=== PATIENT | male | born 1935 | race Caucasian/White ===

== ENCOUNTER 2018-02-26 07:57 | Emergency (ER) | payer MEDICARE, OTHER ==
[2018-02-26] MEDS ORDERED: Ketorolac Tromethamine 30 MG/ML VIAL ONE (08:18)
--- NOTE | 2018-02-26 09:10 | RAD ---
THREE VIEWS LUMBAR SPINE: INDICATION: Left hip pain and left leg pain. FINDINGS: There are 5 lumbar-type vertebrae. There is grade I anterolisthesis at L4 and L5. There is multilev el mild degenerative disk disease. There is moderate facet osteoarthrosis at L4-5 and L5-S1. There are vascular calcifications involving the abdominal aorta. No acute osseous abnormality is evident. IMPRESSION: Mild spondylosis of the lumbar spine. Grade I anterolisthesis at L4 on L5. No acute fracture or sub luxation demonstrated. POS: [facility]
== END 2018-02-26 08:40 | disposition home or self-care (01) ==
LOC: SCSER 07:57
DX: M54.32 Sciatica, left side (principal); E78.00 Pure hypercholesterolemia, unspecified; Z79.899 Other long term (current) drug therapy
CPT/HCPCS: 72100; 96372; J1885

== ENCOUNTER 2018-03-12 09:54 | Outpatient (CLI) | payer MEDICARE, OTHER ==
--- NOTE | 2018-03-12 13:04 | MRI ---
MRI LUMBAR SPINE NONCONTRAST: DATE: 03/12/18. HISTORY: An 82-year-old male with: M43.10, anterolisthesis. 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 M47.26, osteoarthritis of spine with radiculopathy, lumbar region. COMPARISON: None. FINDINGS: There are 5 lumbar-type vertebrae. Vertebral body heights are maintained. There is diffusely hetero geneous bone marrow signal in a nodular, patchy manner. This consists of innumerable small and tiny T1 hypointense focal signal abnormalities in the bone marrow, interspersed with T1 hyperintensities ( normal fatty marrow). There is no bone marrow edema seen on the STIR sagittal sequence. There is a large number of bilateral parapelvic renal cysts. There are also bilateral renal parenchy mal T2- hyperintense masses of varying sizes, including large, incompletely imaged. These are statis tically most likely to be cysts also, but occasionally, solid renal masses can be T2-hyperintense. There are 5 lumbar-type vertebrae. Vertebral body heights are maintained. T11-12: Mild disk space narrowing. Degenerative retrolisthesis of T11 on T12. Central and left par acentral shallow disk-osteophyte complex encroaches upon the left anterior aspect of the spinal canal . Mild central spinal canal stenosis. Moderate bilateral neural foraminal stenosis. T12-L1: Essentially normal. Conus medullaris terminates at L1. L1-2: Disk space maintained. Minimal degenerative retrolisthesis. Minimal disk bulge. Mild degene rative facet hypertrophy, left greater than right. Moderate neural foraminal stenosis. Mild central stenosis. L2-3: Disk space maintained. Diffuse disk bulge. Moderate to severe right neural foraminal stenosi s. Severe left neural foraminal stenosis. Mild to moderate thickening of ligamentum flavum. Mild d egenerative facet hypertrophy. Moderate to severe central spinal canal stenosis. L3-4: Moderate-sized central and bilateral paracentral disk extrusion with superior migration of ext ruded disc material up to the pedicle level of L3. This disk extrusion occupies 30-40% of the cross- sectional area of the spinal canal, causing moderate central spinal canal stenosis, abutting and perh aps mildly displacing the bilateral L4 nerve roots. Moderate to severe bilateral neural foraminal st enosis. Mild to moderate bilateral degenerative facet changes. Mild disk space narrowing. L4-5: Severe bilateral degenerative facet disease causes grade I anterolisthesis of L4 on L5. Minim al disk space narrowing. Diffuse disk bulge. Moderate right neural foraminal stenosis. Severe left neural foraminal stenosis. Moderate central spinal canal stenosis. Significant lateral recess sten osis bilaterally. L5-S1: Spinal canal and thecal sac are generous in caliber. Normal disk. Mild bilateral neural for aminal stenosis. Mild bilateral degenerative facet changes. IMPRESSION: 1. Severe bilateral facet osteoarthrosis at L4-5 causing grade I spondylolisthesis. 2. Moderate-sized central extruded disk herniation with superior migration at L3-4. 3. High-grade neural foraminal stenosis, lateral recess stenosis, and central spinal canal stenosis at levels described above. 4. Diffusely heterogeneous bone marrow signal. This is nonspecific. Possibilities include senescen t marrow changes, diffuse skeletal metastatic disease, and multiple myeloma. Clinical and historical correlation is recommended. 5. Multiple bilateral renal cysts. KEVEN [place] POS: [facility]
== END 2018-03-12 09:55 | disposition home or self-care (01) ==
LOC: TBSIIMAG 09:54
PROVIDERS: ATTEND Family Medicine
DX: M47.26 Other spondylosis with radiculopathy, lumbar region (principal); M46.96 Unspecified inflammatory spondylopathy, lumbar region; M43.16 Spondylolisthesis, lumbar region; M51.16 Intervertebral disc disorders with radiculopathy, lumbar region; M48.061 Spinal stenosis, lumbar region without neurogenic claudication; M99.83 Other biomechanical lesions of lumbar region; N28.1 Cyst of kidney, acquired
CPT/HCPCS: 72148

== ENCOUNTER 2018-09-09 09:12 | Outpatient (CLI) | payer MEDICARE, OTHER ==
--- NOTE | 2018-09-09 09:34 | RAD ---
TWO VIEWS SKULL: History: Osteoma. noticed quarter-sized lump to the right of midline. Date: 09-09-18 Technique: AP and lateral views obtained. FINDINGS: No definite visible evidence of calvarial lesions seen. Plain film radiographs failed to visualize an y definite visualized osteoma; however, if there is concern for osteoma, correlation with CT may bett er characterize this. IMPRESSION: No definite visible plain radiographic evidence of osseous lesions. Correlation with CT may be of use . POS: [facility]
== END 2018-09-09 09:13 | disposition home or self-care (01) ==
LOC: BICRAD 09:12
PROVIDERS: ATTEND Dermatology
DX: D16.9 Benign neoplasm of bone and articular cartilage, unspecified (principal); R22.0 Localized swelling, mass and lump, head
CPT/HCPCS: 70250

== ENCOUNTER 2018-10-27 07:12 | Outpatient (CLI) | payer MEDICARE, OTHER ==
--- NOTE | 2018-10-27 08:06 | ULT ---
ABDOMINAL AORTIC ULTRASOUND: HISTORY: Screening for abdominal aortic aneurysm. TECHNIQUE: Real-time imaging of the abdominal aorta is performed. FINDINGS: The proximal aorta measures 2.2 cm. The mid portion measures 1.5 and distally 1.3 cm. The right and left common iliac arteries are in the 11 mm range. IMPRESSION: No evidence of abdominal aortic aneurysm. POS: [facility]
== END 2018-10-27 07:13 | disposition home or self-care (01) ==
LOC: BICULT 07:12
PROVIDERS: ATTEND Family Medicine
DX: Z00.00 Encounter for general adult medical examination without abnormal findings (principal); Z13.6 Encounter for screening for cardiovascular disorders
CPT/HCPCS: 76775

== ENCOUNTER 2022-04-18 09:40 | Outpatient (CLI) | payer MEDICARE, OTHER | END 2022-04-18 09:41 | disposition home or self-care (01) | LOC: PET 09:40 | PROVIDERS: ATTEND Psychiatry & Neurology Neurology | DX: F03.90 Unspecified dementia, unspecified severity, without behavioral disturbance, psychotic disturbance, mood disturbance, and anxiety (principal); G31.09 Other frontotemporal neurocognitive disorder; R41.3 Other amnesia | CPT/HCPCS: 70551; 78803; A9552 ==

== ENCOUNTER 2025-07-11 23:58 | Inpatient (IN) | payer MEDICARE ==
[2025-07-12] MEDS ORDERED: Dextrose 50% Abboject 50 ML SYRINGE SLOW IVP PRN (00:19)
[2025-07-12] MEDS ORDERED: Acetaminophen 325 MG TAB PO PRN (00:19)
[2025-07-12] MEDS ORDERED: Ondansetron PF 4 MG/2 ML Vial IVP PRN (00:19)
[2025-07-12] MEDS ORDERED: hydrALAZINE 20 MG/ML VIAL SLOW IVP PRN (00:19)
[2025-07-12] MEDS ORDERED: Glucagon 1 MG/ML KIT IM PRN (00:19)
[2025-07-12] MEDS: hydrALAZINE 20 MG/ML VIAL SLOW IVP PRN (02:57)
[2025-07-12 03:29] LABS: #Basophils 0.04 10x3/uL (0.0-0.2); #Eosinophils 0.30 10x3/uL (0.0-0.7); #Monocytes 0.82 10x3/uL (0.11-0.59); #Neutrophils 4.00 10x3/uL (1.40-6.50); %Basophils 0.6 % (0.0-1.0); %Eosinophils 4.6 % (0.0-10.0); %Lymphocytes 20.7 % (21.0-51.0); %Monocytes 12.6 % (0.0-10.0); %Neutrophils 61.3 % (42.0-75.0); Hematocrit 33.7 % (42.0-52.0); Hemoglobin 11.1 g/dL (14.0-18.0); Mean Corpuscular Hemoglobin 30.5 pg (27.0-31.0); Mean Corpuscular Volume 92.6 fL (78.0-98.0); Platelet Count 182 10x3/uL (130-400); Red Blood Cell (RBC) Count 3.64 mill/uL (4.70-6.10); White Blood Cell (WBC) Count 6.52 10x3/uL (4.8-10.8)
[2025-07-12 03:47] LABS: ALT (SGPT) 19 U/L (Less than 45); AST (SGOT) 28 U/L (11-34); Albumin 3.8 g/dL (3.1-4.5); Alkaline Phosphatase 59 U/L (40-110); Anion Gap 14 mmol/L (10-20); BUN (Urea Nitrogen) 33 mg/dL (8.4-25.7); Bilirubin, Total 0.4 mg/dL (0.3-1.2); Calc. Creatinine Clearance 48 mL/min (70-130); Calcium 9.2 mg/dL (7.8-10.44); Carbon Dioxide 23 mmol/L (23-31); Chloride 112 mmol/L (98-107); Globulin 2.8 g/dL (2.4-3.5); Glucose 91 mg/dL (83-110); Potassium 3.6 mmol/L (3.5-5.1); Sodium 145 mmol/L (136-145)
[2025-07-12] MEDS: niCARdipine 25 MG in Sodium Chloride 0.9% 250 ML 250 ML IVPB SCH (03:52)
[2025-07-12] MEDS ORDERED: Thrombin 5000 UNITS/5 ML VIAL ONE (07:32)
[2025-07-12] MEDS ORDERED: Lidocaine 1% (PF) 30 ML VIAL ONE (07:36)
[2025-07-12] MEDS: Famotidine/PF 20 mg/2ml Vial SLOW IVP SCH (07:48)
[2025-07-12] MEDS: Mupirocin 1 GM TUBE NASAL DECOLONIZATION NASAL SCH (10:37)
[2025-07-12] MEDS ORDERED: Nitroglycerin 50 MG/250 ML BOT 0 ML ONE (15:56)
[2025-07-12] MEDS ORDERED: Mannitol 12.5 GM/50 ML ONE (15:56)
[2025-07-12] MEDS ORDERED: fentaNYL PF 100 MCG/2 ML SYRINGE ONE (16:07)
[2025-07-12] MEDS ORDERED: Ondansetron PF 4 MG/2 ML Vial ONE ×2 (16:09→17:12)
[2025-07-12] MEDS ORDERED: SUCCINYLCHOLINE/SOD CL,ISO/PF 200 MG/10 ML SYRINGE FS ONE (16:09)
[2025-07-12] MEDS ORDERED: PROPOFOL 200 MG/20 ML VIAL ONE (16:31)
[2025-07-12] MEDS ORDERED: CEFAZOLIN 1 GM VIAL ONE (16:52)
[2025-07-12] MEDS ORDERED: PHENYLEPHRINE-NS 100 MCG/ML 10 ML SYRINGE ONE ×2 (16:52→17:11)
[2025-07-12] MEDS ORDERED: SUGAMMADEX SODIUM 200 MG/2 ML VIAL ONE (17:19)
[2025-07-13 05:15] LABS: #Basophils Less than 0.03 10x3/uL (0.0-0.2); #Eosinophils Less than 0.03 10x3/uL (0.0-0.7); #Monocytes 0.99 10x3/uL (0.11-0.59); #Neutrophils 13.28 10x3/uL (1.40-6.50); %Basophils 0.1 % (0.0-1.0); %Eosinophils 0.0 % (0.0-10.0); %Lymphocytes 3.1 % (21.0-51.0); %Monocytes 6.7 % (0.0-10.0); %Neutrophils 89.5 % (42.0-75.0); Hematocrit 32.3 % (42.0-52.0); Hemoglobin 10.5 g/dL (14.0-18.0); Mean Corpuscular Hemoglobin 29.8 pg (27.0-31.0); Mean Corpuscular Volume 91.8 fL (78.0-98.0); Platelet Count 183 10x3/uL (130-400); Red Blood Cell (RBC) Count 3.52 mill/uL (4.70-6.10); White Blood Cell (WBC) Count 14.84 10x3/uL (4.8-10.8)
[2025-07-13 05:30] LABS: ALT (SGPT) 16 U/L (Less than 45); AST (SGOT) 33 U/L (11-34); Albumin 3.5 g/dL (3.1-4.5); Alkaline Phosphatase 58 U/L (40-110); Anion Gap 15 mmol/L (10-20); BUN (Urea Nitrogen) 24 mg/dL (8.4-25.7); Bilirubin, Total 0.4 mg/dL (0.3-1.2); Calc. Creatinine Clearance 44 mL/min (70-130); Calcium 8.8 mg/dL (7.8-10.44); Carbon Dioxide 19 mmol/L (23-31); Chloride 115 mmol/L (98-107); Globulin 2.6 g/dL (2.4-3.5); Glucose 128 mg/dL (83-110); Potassium 4.2 mmol/L (3.5-5.1); Sodium 145 mmol/L (136-145)
[2025-07-13] MEDS: diphenhydrAMINE 50 MG/ML VIAL IVP PRN (21:52)
[2025-07-14] MEDS ORDERED: OLANZapine 10 MG VIAL IM SCH (03:45)
[2025-07-14 05:24] LABS: ALT (SGPT) 16 U/L (Less than 45); AST (SGOT) 66 U/L (11-34); Albumin 3.2 g/dL (3.1-4.5); Alkaline Phosphatase 54 U/L (40-110); Anion Gap 12 mmol/L (10-20); BUN (Urea Nitrogen) 30 mg/dL (8.4-25.7); Bilirubin, Total 0.5 mg/dL (0.3-1.2); Calc. Creatinine Clearance 47 mL/min (70-130); Calcium 8.4 mg/dL (7.8-10.44); Carbon Dioxide 18 mmol/L (23-31); Chloride 118 mmol/L (98-107); Globulin 2.5 g/dL (2.4-3.5); Glucose 121 mg/dL (83-110); Potassium 3.8 mmol/L (3.5-5.1); Sodium 144 mmol/L (136-145)
[2025-07-14 05:46] LABS: #Basophils 0.03 10x3/uL (0.0-0.2); #Eosinophils Less than 0.03 10x3/uL (0.0-0.7); #Monocytes 1.12 10x3/uL (0.11-0.59); #Neutrophils 12.72 10x3/uL (1.40-6.50); %Basophils 0.2 % (0.0-1.0); %Eosinophils 0.0 % (0.0-10.0); %Lymphocytes 4.5 % (21.0-51.0); %Monocytes 7.7 % (0.0-10.0); %Neutrophils 87.2 % (42.0-75.0); Hematocrit 33.2 % (42.0-52.0); Hemoglobin 10.6 g/dL (14.0-18.0); Mean Corpuscular Hemoglobin 29.7 pg (27.0-31.0); Mean Corpuscular Volume 93.0 fL (78.0-98.0); Platelet Count 159 10x3/uL (130-400); Red Blood Cell (RBC) Count 3.57 mill/uL (4.70-6.10); White Blood Cell (WBC) Count 14.58 10x3/uL (4.8-10.8)
[2025-07-14] MEDS: QUEtiapine 25 MG TAB PO SCH (17:53)
[2025-07-15] MEDS: hydrALAZINE 20 MG/ML VIAL SLOW IVP SCH (03:26)
[2025-07-15] MEDS ORDERED: niCARdipine 25 MG in Sodium Chloride 0.9% 250 ML 250 ML IVPB SCH (04:45)
[2025-07-15] MEDS: niCARdipine 25 MG in Sodium Chloride 0.9% 250 ML 250 ML IVPB PRN (04:50)
[2025-07-15 07:12] LABS: #Basophils Less than 0.03 10x3/uL (0.0-0.2); #Eosinophils Less than 0.03 10x3/uL (0.0-0.7); #Monocytes 0.99 10x3/uL (0.11-0.59); #Neutrophils 10.98 10x3/uL (1.40-6.50); %Basophils 0.2 % (0.0-1.0); %Eosinophils 0.0 % (0.0-10.0); %Lymphocytes 3.3 % (21.0-51.0); %Monocytes 7.9 % (0.0-10.0); %Neutrophils 88.0 % (42.0-75.0); Hematocrit 33.9 % (42.0-52.0); Hemoglobin 11.1 g/dL (14.0-18.0); Mean Corpuscular Hemoglobin 30.4 pg (27.0-31.0); Mean Corpuscular Volume 92.9 fL (78.0-98.0); Platelet Count 142 10x3/uL (130-400); Red Blood Cell (RBC) Count 3.65 mill/uL (4.70-6.10); White Blood Cell (WBC) Count 12.47 10x3/uL (4.8-10.8)
[2025-07-15 07:36] LABS: ALT (SGPT) 14 U/L (Less than 45); AST (SGOT) 54 U/L (11-34); Albumin 3.2 g/dL (3.1-4.5); Alkaline Phosphatase 58 U/L (40-110); Anion Gap 15 mmol/L (10-20); BUN (Urea Nitrogen) 34 mg/dL (8.4-25.7); Bilirubin, Total 0.7 mg/dL (0.3-1.2); Calc. Creatinine Clearance 54 mL/min (70-130); Calcium 8.7 mg/dL (7.8-10.44); Carbon Dioxide 16 mmol/L (23-31); Chloride 119 mmol/L (98-107); Globulin 2.7 g/dL (2.4-3.5); Glucose 123 mg/dL (83-110); Potassium 3.4 mmol/L (3.5-5.1); Sodium 147 mmol/L (136-145)
[2025-07-15] MEDS: FLU (Fluad Triv) 25-26 (65UP)PF 45 MCG/0.5 ML Syringe IM ONE (19:21)
[2025-07-15] MEDS: PNEUMOC 20-VAL CONJ-DIP CRM/PF 0.5 ML SYRINGE IM ONE (19:24)
[2025-07-15] MEDS: hydrALAZINE 20 MG/ML VIAL SLOW IVP PRN (19:50)
[2025-07-15] MEDS: QUEtiapine 25 MG TAB PO SCH (21:04)
[2025-07-15 23:40] LABS: Anion Gap 15 mmol/L (10-20); BUN (Urea Nitrogen) 35 mg/dL (8.4-25.7); Calc. Creatinine Clearance 56 mL/min (70-130); Calcium 8.5 mg/dL (7.8-10.44); Carbon Dioxide 19 mmol/L (23-31); Chloride 116 mmol/L (98-107); Glucose 140 mg/dL (83-110); Magnesium 2.1 mg/dL (1.6-2.6); Potassium 3.2 mmol/L (3.5-5.1); Sodium 147 mmol/L (136-145)
[2025-07-15] MEDS ORDERED: PHOS-NAK 1 PKT PACK PO PRN (23:45)
[2025-07-15] MEDS ORDERED: Electrolyte Replacement Protocol 1 EACH FS SCH (23:45)
[2025-07-16] MEDS: Potassium Chloride 20 MEQ in Premix 1 BAG IVPB PRN (00:04)
[2025-07-16 03:43] LABS: #Basophils Less than 0.03 10x3/uL (0.0-0.2); #Eosinophils Less than 0.03 10x3/uL (0.0-0.7); #Monocytes 1.06 10x3/uL (0.11-0.59); #Neutrophils 8.57 10x3/uL (1.40-6.50); %Basophils 0.2 % (0.0-1.0); %Eosinophils 0.2 % (0.0-10.0); %Lymphocytes 5.5 % (21.0-51.0); %Monocytes 10.3 % (0.0-10.0); %Neutrophils 83.1 % (42.0-75.0); Hematocrit 34.6 % (42.0-52.0); Hemoglobin 11.2 g/dL (14.0-18.0); Mean Corpuscular Hemoglobin 29.8 pg (27.0-31.0); Mean Corpuscular Volume 92.0 fL (78.0-98.0); Platelet Count 146 10x3/uL (130-400); Red Blood Cell (RBC) Count 3.76 mill/uL (4.70-6.10); White Blood Cell (WBC) Count 10.31 10x3/uL (4.8-10.8)
[2025-07-16 04:12] LABS: ALT (SGPT) 10 U/L (Less than 45); AST (SGOT) 33 U/L (11-34); Albumin 3.0 g/dL (3.1-4.5); Alkaline Phosphatase 61 U/L (40-110); Anion Gap 12 mmol/L (10-20); BUN (Urea Nitrogen) 33 mg/dL (8.4-25.7); Bilirubin, Total 0.8 mg/dL (0.3-1.2); Calc. Creatinine Clearance 60 mL/min (70-130); Calcium 8.5 mg/dL (7.8-10.44); Carbon Dioxide 21 mmol/L (23-31); Chloride 118 mmol/L (98-107); Globulin 2.8 g/dL (2.4-3.5); Glucose 128 mg/dL (83-110); Potassium 3.5 mmol/L (3.5-5.1); Sodium 147 mmol/L (136-145)
[2025-07-16 06:15] VITALS: BMI 18.6
[2025-07-16] MEDS: Lisinopril 20 MG TAB PO SCH (08:01)
[2025-07-16] MEDS: Sertraline 25 MG TAB PO SCH (08:01)
[2025-07-16] MEDS: Famotidine/PF 20 mg/2ml Vial ONE (08:25)
[2025-07-16] MEDS: Memantine 5 MG TAB PO SCH (08:26)
[2025-07-16] MEDS: Potassium Chloride 20 MEQ (100 mL) BAG ONE (10:24)
[2025-07-16 10:54] LABS: Potassium 3.6 mmol/L (3.5-5.1)
[2025-07-16] MEDS: diphenhydrAMINE 50 MG/ML VIAL IVP SCH (23:45)
[2025-07-17 08:00] LABS: #Basophils Less than 0.03 10x3/uL (0.0-0.2); #Eosinophils 0.05 10x3/uL (0.0-0.7); #Monocytes 1.02 10x3/uL (0.11-0.59); #Neutrophils 6.08 10x3/uL (1.40-6.50); %Basophils 0.3 % (0.0-1.0); %Eosinophils 0.6 % (0.0-10.0); %Lymphocytes 7.9 % (21.0-51.0); %Monocytes 13.0 % (0.0-10.0); %Neutrophils 77.4 % (42.0-75.0); Hematocrit 34.0 % (42.0-52.0); Hemoglobin 11.0 g/dL (14.0-18.0); Mean Corpuscular Hemoglobin 29.6 pg (27.0-31.0); Mean Corpuscular Volume 91.6 fL (78.0-98.0); Platelet Count 149 10x3/uL (130-400); Red Blood Cell (RBC) Count 3.71 mill/uL (4.70-6.10); White Blood Cell (WBC) Count 7.85 10x3/uL (4.8-10.8)
[2025-07-17 08:14] LABS: ALT (SGPT) 12 U/L (Less than 45); AST (SGOT) 22 U/L (11-34); Albumin 2.7 g/dL (3.1-4.5); Alkaline Phosphatase 54 U/L (40-110); Anion Gap 9 mmol/L (10-20); BUN (Urea Nitrogen) 32 mg/dL (8.4-25.7); Bilirubin, Total 0.7 mg/dL (0.3-1.2); Calc. Creatinine Clearance 61 mL/min (70-130); Calcium 8.3 mg/dL (7.8-10.44); Carbon Dioxide 23 mmol/L (23-31); Chloride 115 mmol/L (98-107); Globulin 2.5 g/dL (2.4-3.5); Glucose 160 mg/dL (83-110); Potassium 3.3 mmol/L (3.5-5.1); Sodium 144 mmol/L (136-145)
[2025-07-17] MEDS: Famotidine/PF 20 mg/2ml Vial SLOW IVP SCH (20:37)
[2025-07-18 04:01] LABS: #Basophils 0.04 10x3/uL (0.0-0.2); #Eosinophils 0.03 10x3/uL (0.0-0.7); #Monocytes 1.12 10x3/uL (0.11-0.59); #Neutrophils 8.68 10x3/uL (1.40-6.50); %Basophils 0.4 % (0.0-1.0); %Eosinophils 0.3 % (0.0-10.0); %Lymphocytes 5.4 % (21.0-51.0); %Monocytes 10.6 % (0.0-10.0); %Neutrophils 82.4 % (42.0-75.0); Hematocrit 37.6 % (42.0-52.0); Hemoglobin 12.8 g/dL (14.0-18.0); Mean Corpuscular Hemoglobin 30.3 pg (27.0-31.0); Mean Corpuscular Volume 88.9 fL (78.0-98.0); Platelet Count 189 10x3/uL (130-400); Red Blood Cell (RBC) Count 4.23 mill/uL (4.70-6.10); White Blood Cell (WBC) Count 10.54 10x3/uL (4.8-10.8)
[2025-07-18 04:38] LABS: ALT (SGPT) 13 U/L (Less than 45); AST (SGOT) 27 U/L (11-34); Albumin 3.0 g/dL (3.1-4.5); Alkaline Phosphatase 63 U/L (40-110); Anion Gap 13 mmol/L (10-20); BUN (Urea Nitrogen) 28 mg/dL (8.4-25.7); Bilirubin, Total 0.9 mg/dL (0.3-1.2); Calc. Creatinine Clearance 64 mL/min (70-130); Calcium 8.4 mg/dL (7.8-10.44); Carbon Dioxide 20 mmol/L (23-31); Chloride 112 mmol/L (98-107); Globulin 2.9 g/dL (2.4-3.5); Glucose 145 mg/dL (83-110); Potassium 3.8 mmol/L (3.5-5.1); Sodium 141 mmol/L (136-145)
[2025-07-18 07:01] LABS: Magnesium 1.7 mg/dL (1.6-2.6)
[2025-07-18] MEDS: Magnesium 2 GM/50 ML(in water) 2 GM in Premix 1 BAG IVPB PRN (08:17)
[2025-07-18] MEDS: risperiDONE 0.25 MG TAB PO SCH (08:40)
[2025-07-19 04:39] LABS: ALT (SGPT) 17 U/L (Less than 45); AST (SGOT) 40 U/L (11-34); Albumin 2.9 g/dL (3.1-4.5); Alkaline Phosphatase 67 U/L (40-110); Anion Gap 16 mmol/L (10-20); BUN (Urea Nitrogen) 39 mg/dL (8.4-25.7); Bilirubin, Total 0.9 mg/dL (0.3-1.2); Calcium 8.6 mg/dL (7.8-10.44); Carbon Dioxide 15 mmol/L (23-31); Chloride 111 mmol/L (98-107); Globulin 3.3 g/dL (2.4-3.5); Glucose 134 mg/dL (83-110); Magnesium 2.5 mg/dL (1.6-2.6); Potassium 4.5 mmol/L (3.5-5.1); Sodium 137 mmol/L (136-145)
[2025-07-19 04:43] LABS: Calc. Creatinine Clearance 34 mL/min (70-130)
[2025-07-19 06:46] LABS: #Basophils Less than 0.03 10x3/uL (0.0-0.2); #Eosinophils Less than 0.03 10x3/uL (0.0-0.7); #Monocytes 1.67 10x3/uL (0.11-0.59); #Neutrophils 10.98 10x3/uL (1.40-6.50); %Basophils 0.2 % (0.0-1.0); %Eosinophils 0.1 % (0.0-10.0); %Lymphocytes 3.3 % (21.0-51.0); %Monocytes 12.7 % (0.0-10.0); %Neutrophils 83.1 % (42.0-75.0); Hematocrit 36.2 % (42.0-52.0); Hemoglobin 12.0 g/dL (14.0-18.0); Mean Corpuscular Hemoglobin 30.3 pg (27.0-31.0); Mean Corpuscular Volume 91.4 fL (78.0-98.0); Platelet Count 136 10x3/uL (130-400); Red Blood Cell (RBC) Count 3.96 mill/uL (4.70-6.10); White Blood Cell (WBC) Count 13.19 10x3/uL (4.8-10.8)
[2025-07-19] MEDS: Senokot S 8.6-50 MG TAB PO SCH (09:51)
[2025-07-19] MEDS: Famotidine/PF 20 mg/2ml Vial SLOW IVP SCH (09:52)
[2025-07-19 14:21] VITALS: BMI 18.9
[2025-07-19] MEDS: Simvastatin 10 MG TAB PO SCH (22:19)
[2025-07-20 04:57] LABS: #Basophils 0.03 10x3/uL (0.0-0.2); #Eosinophils 0.30 10x3/uL (0.0-0.7); #Monocytes 1.14 10x3/uL (0.11-0.59); #Neutrophils 6.57 10x3/uL (1.40-6.50); %Basophils 0.3 % (0.0-1.0); %Eosinophils 3.4 % (0.0-10.0); %Lymphocytes 9.2 % (21.0-51.0); %Monocytes 12.8 % (0.0-10.0); %Neutrophils 73.7 % (42.0-75.0); Hematocrit 32.5 % (42.0-52.0); Hemoglobin 10.9 g/dL (14.0-18.0); Mean Corpuscular Hemoglobin 30.3 pg (27.0-31.0); Mean Corpuscular Volume 90.3 fL (78.0-98.0); Platelet Count 110 10x3/uL (130-400); Red Blood Cell (RBC) Count 3.60 mill/uL (4.70-6.10); White Blood Cell (WBC) Count 8.91 10x3/uL (4.8-10.8)
[2025-07-20 05:24] LABS: Anion Gap 10 mmol/L (10-20); BUN (Urea Nitrogen) 33 mg/dL (8.4-25.7); Calc. Creatinine Clearance 56 mL/min (70-130); Calcium 8.2 mg/dL (7.8-10.44); Carbon Dioxide 23 mmol/L (23-31); Chloride 112 mmol/L (98-107); Glucose 98 mg/dL (83-110); Magnesium 2.0 mg/dL (1.6-2.6); Potassium 3.5 mmol/L (3.5-5.1); Sodium 141 mmol/L (136-145)
[2025-07-20] MEDS: Enoxaparin 40 MG (0.4 mL) SYRINGE SC SCH (09:37)
[2025-07-20] MEDS: Famotidine/PF 20 mg/2ml Vial SLOW IVP SCH (09:38)
[2025-07-20] MEDS: Melatonin 3 MG TAB PO SCH (19:23)
[2025-07-21 06:13] LABS: #Basophils 0.03 10x3/uL (0.0-0.2); #Eosinophils 0.13 10x3/uL (0.0-0.7); #Monocytes 1.04 10x3/uL (0.11-0.59); #Neutrophils 6.00 10x3/uL (1.40-6.50); %Basophils 0.4 % (0.0-1.0); %Eosinophils 1.6 % (0.0-10.0); %Lymphocytes 8.0 % (21.0-51.0); %Monocytes 13.2 % (0.0-10.0); %Neutrophils 76.0 % (42.0-75.0); Hematocrit 30.5 % (42.0-52.0); Hemoglobin 10.2 g/dL (14.0-18.0); Mean Corpuscular Hemoglobin 30.2 pg (27.0-31.0); Mean Corpuscular Volume 90.2 fL (78.0-98.0); Platelet Count 121 10x3/uL (130-400); Red Blood Cell (RBC) Count 3.38 mill/uL (4.70-6.10); White Blood Cell (WBC) Count 7.89 10x3/uL (4.8-10.8)
[2025-07-21] MEDS ORDERED: Magnesium Sulfate In Water 4 GM in Premix 1 BAG IVPB PRN (16:00)
[2025-07-21] MEDS ORDERED: PHOS-NAK 1 PKT PACK PO PRN (16:00)
[2025-07-21] MEDS ORDERED: Potassium Chloride 20 MEQ in Premix 1 BAG IVPB PRN (16:00)
[2025-07-22 12:24] LABS: Bacteria/HPF 2+ HPF (None Seen); CAUTI Indications for Culture Alt mental st,lethar; Mucous/LPF 1+ LPF (<2+); RBC/HPF Greater than 50 HPF (0-3); WBC/HPF Greater than 50 HPF (0-3)
[2025-07-22 12:27] LABS: Glucose, Urine (Dipstick) Negative (Negative); Leukocyte Large (Negative); Protein, Urine (Dipstick) 100 mg/dL (Neg-Trace); Specific Gravity, Urine 1.025 (1.005-1.030)
[2025-07-22 12:29] LABS: Urine Culture Reflex Yes Yes
[2025-07-24] MEDS: cefTRIAXone\\ROCEPHIN 1 GM in Sodium Chloride 0.9% 100 ML IVPB SCH (10:29)
[2025-07-24 11:38] VITALS: BP 135/63; TEMP 97.4
[2025-07-24] MEDS ORDERED: Cefdinir 300 MG CAP PO SCH (21:00)
== END 2025-07-24 15:30 | disposition hospice, home (50) | DRG 25 ==
LOC: ERS 23:58 → CCU 07-12 00:19 → 2SE 07-17 15:58
PROVIDERS: ADMIT Surgery Trauma Surgery; ATTEND Surgery Trauma Surgery
PROC: 00C40ZZ Extirpation of Matter from Intracranial Subdural Space, Open Approach (ICD-10-PCS; principal; 2025-07-12)
PROC: XX20X89 Monitoring of Brain Electrical Activity, Computer-aided Detection and Notification, New Technology Group 9 (ICD-10-PCS; 2025-07-12)
PROC: 3E03329 Introduction of Other Anti-infective into Peripheral Vein, Percutaneous Approach (ICD-10-PCS; 2025-07-14)
PROC: 0T9B70Z Drainage of Bladder with Drainage Device, Via Natural or Artificial Opening (ICD-10-PCS; 2025-07-14)
PROC: 0T9B70Z Drainage of Bladder with Drainage Device, Via Natural or Artificial Opening (ICD-10-PCS; 2025-07-21)
DX: S06.5XAA Traumatic subdural hemorrhage with loss of consciousness status unknown, initial encounter (principal); G93.41 Metabolic encephalopathy; S06.A0XA Traumatic brain compression without herniation, initial encounter; E87.29 Other acidosis; E44.0 Moderate protein-calorie malnutrition; Z68.1 Body mass index [BMI] 19.9 or less, adult; R13.10 Dysphagia, unspecified; I10 Essential (primary) hypertension; Z90.49 Acquired absence of other specified parts of digestive tract; Z98.890 Other specified postprocedural states; E78.00 Pure hypercholesterolemia, unspecified; F03.90 Unspecified dementia, unspecified severity, without behavioral disturbance, psychotic disturbance, mood disturbance, and anxiety; D64.9 Anemia, unspecified; D72.829 Elevated white blood cell count, unspecified; R40.2362 Coma scale, best motor response, obeys commands, at arrival to emergency department; R40.2242 Coma scale, best verbal response, confused conversation, at arrival to emergency department; R40.2142 Coma scale, eyes open, spontaneous, at arrival to emergency department; W19.XXXA Unspecified fall, initial encounter; E87.8 Other disorders of electrolyte and fluid balance, not elsewhere classified
CPT/HCPCS: 36415; 36416; 36600; 70450; 71045; 72125; 72170; 80048; 80053; 81001; 82805; 83036; 83735; 84100; 84484; 85025; 85610; 85730; 87077; 87086; 87186; 93005; 93010; 96365; 96367; 96374; 96375; C1713; C1876; G0390; J0169; J0360; J0690; J0696; J1100; J1200; J1308; J1630; J1650; J1815; J1953; J2003; J2151; J2250; J2272; J2405; J2704; J3475; J3480; J7030; J7050; J7799; P9045

== ENCOUNTER 2025-07-28 21:19 | Inpatient (IN) | payer MEDICARE ==
[2025-07-28] MEDS ORDERED: Dextrose 50% Abboject 50 ML SYRINGE SLOW IVP PRN (22:37)
[2025-07-28] MEDS ORDERED: hydrALAZINE 20 MG/ML VIAL SLOW IVP PRN (22:37)
[2025-07-28] MEDS ORDERED: Methocarbamol 500 MG TAB PO PRN (22:37)
[2025-07-28] MEDS ORDERED: Glucagon 1 MG/ML KIT IM PRN (22:37)
[2025-07-28] MEDS ORDERED: Ondansetron PF 4 MG/2 ML Vial IVP PRN (22:37)
[2025-07-28 22:46] LABS: #Basophils 0.05 10x3/uL (0.0-0.2); #Eosinophils 0.20 10x3/uL (0.0-0.7); #Monocytes 0.81 10x3/uL (0.11-0.59); #Neutrophils 6.66 10x3/uL (1.40-6.50); %Basophils 0.6 % (0.0-1.0); %Eosinophils 2.4 % (0.0-10.0); %Lymphocytes 5.7 % (21.0-51.0); %Monocytes 9.8 % (0.0-10.0); %Neutrophils 81.0 % (42.0-75.0); Hematocrit 32.0 % (42.0-52.0); Hemoglobin 10.4 g/dL (14.0-18.0); Mean Corpuscular Hemoglobin 30.1 pg (27.0-31.0); Mean Corpuscular Volume 92.8 fL (78.0-98.0); Platelet Count 232 10x3/uL (130-400); Red Blood Cell (RBC) Count 3.45 mill/uL (4.70-6.10); White Blood Cell (WBC) Count 8.23 10x3/uL (4.8-10.8)
[2025-07-28 22:59] LABS: INR-International Normal Ratio 1.2; PTT 27.5 sec (22.9-36.1); Prothrombin Time 15.7 sec (12.0-14.7)
[2025-07-28 23:08] LABS: ALT (SGPT) 17 U/L (Less than 45); AST (SGOT) 21 U/L (11-34); Albumin 2.5 g/dL (3.1-4.5); Alkaline Phosphatase 76 U/L (40-110); Anion Gap 12 mmol/L (10-20); BUN (Urea Nitrogen) 19 mg/dL (8.4-25.7); Bilirubin, Total 0.3 mg/dL (0.3-1.2); Calc. Creatinine Clearance 0 mL/min (70-130); Calcium 8.6 mg/dL (7.8-10.44); Carbon Dioxide 23 mmol/L (23-31); Chloride 106 mmol/L (98-107); Globulin 3.2 g/dL (2.4-3.5); Glucose 120 mg/dL (83-110); Potassium 4.3 mmol/L (3.5-5.1); Sodium 137 mmol/L (136-145)
[2025-07-29 09:11] VITALS: TEMP 97.7
[2025-07-29] MEDS: Senokot S 8.6-50 MG TAB PO SCH (09:29)
[2025-07-29] MEDS: Acetaminophen 325 MG TAB PO PRN (12:07)
[2025-07-29 15:36] VITALS: BP 128/59
== END 2025-07-29 18:30 | disposition hospice, home (50) | DRG 84 ==
LOC: ERS 21:19 → ERHOLD 22:37 → SURG A 07-29 08:24
PROVIDERS: ADMIT Surgery; ATTEND Surgery
DX: S06.5XAA Traumatic subdural hemorrhage with loss of consciousness status unknown, initial encounter (principal); I10 Essential (primary) hypertension; E78.5 Hyperlipidemia, unspecified; R40.2362 Coma scale, best motor response, obeys commands, at arrival to emergency department; W19.XXXA Unspecified fall, initial encounter; Z66 Do not resuscitate; R40.2112 Coma scale, eyes open, never, at arrival to emergency department; R40.2242 Coma scale, best verbal response, confused conversation, at arrival to emergency department; S06.1XAA Traumatic cerebral edema with loss of consciousness status unknown, initial encounter; F03.C0 Unspecified dementia, severe, without behavioral disturbance, psychotic disturbance, mood disturbance, and anxiety; Z90.49 Acquired absence of other specified parts of digestive tract; Z98.890 Other specified postprocedural states
CPT/HCPCS: 70450; 72125; 72170; 80053; 85025; 85610; 85730; J2270